=== PATIENT | male | born 2005 | race Caucasian/White ===

== ENCOUNTER 2024-10-14 22:12 | Emergency (ER) | payer BC, SELFPAY ==
--- NOTE | 2024-10-14 | ECG_ITS ---
Test Reason : NEAR SYNCOPE Blood Pressure : */* mmHG Vent. Rate : 103 BPM Atrial Rate : 103 BPM P-R Int : 126 ms QRS Dur : 92 ms QT Int : 314 ms P-R-T Axes : 83 72 53 degrees QTcB Int : 411 ms Sinus tachycardia Otherwise normal ECG No previous ECGs available Referred By: Generic ED Physician Electronically Signed By: RICCO RAMIREZ
[2024-10-14 22:18] VITALS: BP 130/97; PULSE 111; RESP 20; TEMP 36.8; O2SAT 96; BMI 25.7
[2024-10-14 22:45] LABS: MANUAL DIFF FLAG NO
[2024-10-14 22:46] LABS: Basophils Percent Auto 0.2 % (0-2); Eosinophils Percent Auto 0.1 % (0-4); Hematocrit 45.4 % (42.0-52.0); Hemoglobin 16.5 g/dl (14.0-18.0); Imm Gran Abs Auto 0.08 X10*3/uL (0.00-0.03); Imm Gran Pct Auto 0.6 % (0.0-0.4); Lymphocytes Absolute Auto 1.2 X10*3/uL (1.2-4.9); Mean Corpuscular HGB Conc 36.3 g/dl (31.0-36.0); Mean Corpuscular Hemoglobin 30.4 pg (27.0-33.0); Mean Corpuscular Volume 83.8 fL (80.0-98.0); Mean Platelet Volume 8.5 fL (9.4-12.4); Monocytes Absolute Auto 1.1 X10*3/uL (0.1-1.2); Monocytes Percent Auto 8.1 % (2-11); Neutrophils Absolute Auto 11.3 x10*3/uL (2.0-8.3); Platelet Count 300 X10*3/uL (160-400); Red Blood Count 5.42 X10*6/uL (4.60-5.80); Red Cell Distribution Width 12.3 % (11.0-16.0); White Blood Count 13.8 X10*3/uL (4.8-10.8)
[2024-10-14 23:03] LABS: Alanine Aminotransferase 37 U/L (0-40); Albumin Level 5.6 g/dL (3.5-5.0); Alkaline Phosphatase 103 U/L (39-117); Anion Gap 18 (12-20); Aspartate Amino Transferase 51 U/L (5-37); Bilirubin Total 0.7 mg/dL (0.0-1.0); Blood Urea Nitrogen 29 mg/dL (9-16); Calcium 10.9 mg/dL (8.4-10.2); Carbon Dioxide 22 mmol/L (22-29); Chloride 101 mmol/L (96-108); Creatinine Clr Calc Pharmacy 89.5; Estimated Glomerular Filt Rate 56; Glucose Random 118 mg/dL (60-115); Magnesium 2.3 mg/dL (1.6-2.6); Potassium 4.7 mmol/L (3.3-5.1); Sodium 136 mmol/L (135-145); Total Protein 8.5 g/dL (6.5-8.0)
[2024-10-14] MEDS: Lactated Ringers 1,000 ML 999 ML IV (23:12)
[2024-10-15] MEDS: 0.9 % Sodium Chloride 1,000 ML 999 ML IVCONT (01:22)
--- NOTE | 2024-10-15 02:12 | ED_ITS ---
HPI - General Adult General Chief complaint: General Medical Stated complaint: heat exhaustion / needs IV Time Seen by Provider: 10/15/24 01:08 Source: patient Mode of arrival: ambulatory Limitations: no limitations History of Present Illness ED Provider: Dr. Jerrica Dubose HPI narrative: patient comes to the emergency room complaining of feeling tired, bit lightheaded. Patient states that earlier today he was playing baseball around 14:00 in the afternoon on an almost 100 degrees F day. Patient states that in the past he has had similar episodes secondary to dehydration. Patient denies passing out. Denies chest pain or shortness of Breath. No abdominal pain. Patient complaining of full body cramps Related Data Allergies Allergy/AdvReac Type Severity Reaction Status Date / Time No Known Allergies Allergy Verified 10/14/24 22:23 Review of Systems 2 Review of Systems: Constitutional : No Weight loss, No Fever, No Chills, No Night Sweats, No Fatigue, No Malaise ENT/Mouth : No Hearing loss, No Ear Pain, No Nasal Congestion, No Sinus Pain, No Hoarseness, No sore throat, No Rhinorrhea, No Swallowing Difficulty Eyes: No Eye Pain, No Swelling, No Redness, No Foreign Body, No Discharge, No Vision Changes Cardiovascular : No Chest Pain, No SOB, No Dyspnea on Exertion, No Orthopnea, No Edema, No Palpitations Respiratory : No Cough, No Sputum, No Wheezing, No Smoke Exposure, No Dyspnea Gastrointestinal : No Nausea, No Vomiting, No Diarrhea, No Constipation, No abdominal Pain, No Hematochezia, No Melena Genitourinary : no irregular bleeding, No Dysuria, No Urinary Frequency, No Hematuria, No Urinary Incontinence, No Urgency, No Flank Pain, No Urinary Flow Changes, No Hesitancy Musculoskeletal : Complaining of body cramps No joint pain, No Myalgias, No Joint Swelling Skin : No Skin Lesions, No rash Neuro : No Weakness, No Numbness, No Paresthesias, No Loss of Consciousness, no headache, complaining of slight dizziness Psych : No Anxiety/Panic, No Depression, No SI/HI/AH/VH, No Social Issues, Heme/Lymph: No Bruising, No Bleeding,No Lymphadenopathy Endocrine : No Polyuria, No Polydipsia, No Temperature Intolerance PMFSH Social History Social History Advance Directives: No Advance Directives Information Provided: Yes Physical Exam ED Vital Signs: Vital Signs - 24 hr 10/14/24 22:18 10/15/24 03:07 Temperature 98.2 F 98.2 F Pulse Rate 111 H 80 Respiratory Rate 20 16 Blood Pressure 130/97 H 131/79 Pulse Oximetry 96 100 Oxygen Delivery Method Room Air Room Air BMI result Body Mass Index 25.7 Const Other: Appearance: Alert. Oriented X3. No acute distress. Eyes: Pupils equal, round and reactive to light. ENT: Pharynx normal. Neck: Normal inspection. Neck supple. No lymph nodes noted. No crepitus CVS: Normal heart rate and rhythm. Pulses normal. Normal S1 and S2 Respiratory: No respiratory distress. Breath sounds normal. No Wheezing. No rales Abdomen: Soft and nontender. No rigidity. No distention. Skin: Skin warm and dry. Normal skin color. Normal skin turgor. slight sunburn in the face Extremities: No lower extremity edema. No Lacerations. No Rash Neuro: Oriented X 3. No motor deficit. No sensory deficit. Moving all extremities. No slurred speech. CN 2 through 12 grossly intact Psych: calm, cooperative, normal affect Course Course Course Narrative: patient is likely dehydrated. All of patient's labs Pending. Overall, physical exam, patient is well-appearing Medications Administered Discontinued Medications Generic Name Dose Route Start Last Admin Trade Name Trungq PRN Reason Stop Dose Admin Lactated Ringer's 1,000 mls @ 999 mls/hr 10/14/24 23:00 10/15/24 01:13 Lr IV 10/15/24 00:00 Infused .Q1H1M VALENTIN Infusion Sodium Chloride 1,000 mls @ 999 mls/hr 10/15/24 01:14 10/15/24 03:38 Ns IVCONT 10/15/24 02:14 Infused .Q1H1M ONE Infusion Medical Decision Making Medical Decision Making [facility] Narrative: my interpretation of labs, patient's white blood cell count is 13.8, likely reactive leukocytosis. Chemistry shows a creatinine of 1.58 Along with a CPK of 2157. Patient is receiving IV fluids. Plan is to reassess labs in the patient again after 2 L of normal saline patient's creatinine improved to 1.5, back to normal, also patient has CPK starting to come down. Overall patient feeling better. Differential Diagnosis Differential Diagnoses: The differential diagnosis associated with the presentation includes ( Dehydration, heat exhaustion) Lab Data MDM Lab Attestation statement: I reviewed the patient's lab results. 10/14/24 22:40 10/15/24 03:13 Labs: Lab Results 10/14/24 10/15/24 Range/Units 22:40 03:13 WBC 13.8 H (4.8-10.8) X10*3/uL RBC 5.42 (4.60-5.80) X10*6/uL Hgb 16.5 (14.0-18.0) g/dl Hct 45.4 (42.0-52.0) % MCV 83.8 (80.0-98.0) fL MCH 30.4 (27.0-33.0) pg MCHC 36.3 H (31.0-36.0) g/dl RDW 12.3 (11.0-16.0) % Plt Count 300 (160-400) X10*3/uL MPV 8.5 L (9.4-12.4) fL Immature Gran % (Auto) 0.6 H (0.0-0.4) % Neut % (Auto) 82.0 H (45-73) % Lymph % (Auto) 9.0 L (20-40) % Guthrie % (Auto) 8.1 (2-11) % Eos % (Auto) 0.1 (0-4) % Baso % (Auto) 0.2 (0-2) % Lymph # (Auto) 1.2 (1.2-4.9) X10*3/uL Guthrie # (Auto) 1.1 (0.1-1.2) X10*3/uL Eos # (Auto) 0.0 (0.0-0.4) X10*3/uL Baso # (Auto) 0.0 (0.0-0.2) X10*3/uL Abs Immat Gran (auto) 0.08 H (0.00-0.03) X10*3/uL Absolute Neuts (auto) 11.3 H (2.0-8.3) x10*3/uL Absolute Nucleated RBC 0.000 (0.0-0.012) X10*3/uL Nucleated RBC % (auto) 0.0 (0.0-0.2) /100WBC Sodium 136 138 (135-145) mmol/L Potassium 4.7 4.6 (3.3-5.1) mmol/L Chloride 101 105 (96-108) mmol/L Carbon Dioxide 22 24 (22-29) mmol/L Anion Gap 18 14 (12-20) BUN 29 H 22 H (9-16) mg/dL Creatinine 1.56 H 1.05 (0.5-1.4) mg/dL Estim Creat Clear Calc 89.5 133.0 Estimated GFR 56 > 60 Random Glucose 118 H 111 (60-115) mg/dL Calcium 10.9 H 9.7 D (8.4-10.2) mg/dL Magnesium 2.3 (1.6-2.6) mg/dL Total Bilirubin 0.7 (0.0-1.0) mg/dL AST 51 H (5-37) U/L ALT 37 (0-40) U/L Alkaline Phosphatase 103 (39-117) U/L Total Creatine Kinase 2157 H 1817 H (38-174) U/L Total Protein 8.5 H (6.5-8.0) g/dL Albumin 5.6 H (3.5-5.0) g/dL Critical Care Time Critical Care Time Critical Care Time: Yes Total Critical Care Time: 45 Attestation: I have personally provided critical care time. Time includes review of lab data, radiology results, discussion with consultants, and monitoring for potential decompensation. Intervention performed as documented. Discharge Plan Discharge Clinical Impression: Heat exhaustion, Dehydration Patient Disposition: Home, Self-Care Instructions: Dehydration (ED), Heat Exhaustion (ED) Additional Instructions: Make sure that you stay well hydrated, drink plenty of fluids with electrolytes. Please follow-up with your primary care physician tomorrow. If you have any worsening or new symptoms, please return to the emergency room or call 911 Stand Alone Forms: Work/School Release Print Language: Filipino
[2024-10-15 03:07] VITALS: BP 131/79; PULSE 80; RESP 16; TEMP 36.8; O2SAT 100
[2024-10-15 03:36] LABS: Anion Gap 14 (12-20); Blood Urea Nitrogen 22 mg/dL (9-16); Calcium 9.7 mg/dL (8.4-10.2); Carbon Dioxide 24 mmol/L (22-29); Chloride 105 mmol/L (96-108); Estimated Glomerular Filt Rate > 60; Glucose Random 111 mg/dL (60-115); Potassium 4.6 mmol/L (3.3-5.1); Sodium 138 mmol/L (135-145)
[2024-10-15 04:24] VITALS: BP 133/69; PULSE 75; RESP 16; TEMP 36.6; O2SAT 99
== END 2024-10-15 04:27 | disposition home or self-care (01) ==
PROVIDERS: Emergency Medicine; Emergency Provider Emergency Medicine
DX: E86.0 Dehydration (principal); R25.2 Cramp and spasm; R42 Dizziness and giddiness; R00.0 Tachycardia, unspecified; T67.5XXA Heat exhaustion, unspecified, initial encounter; X58.XXXA Exposure to other specified factors, initial encounter; Y93.9 Activity, unspecified; Y92.9 Unspecified place or not applicable; Y99.8 Other external cause status
CPT/HCPCS: 36415; 80048; 80053; 82550; 83735; 85025; 93005; 96360; 96361; 99285; J7120

== ENCOUNTER → 2024-10-14 22:30 | Outpatient (BNV) | payer BC, SELFPAY | PROVIDERS: Emergency Provider Emergency Medicine; Visit Provider Internal Medicine | DX: R00.0 Tachycardia, unspecified (principal) | CPT/HCPCS: 93010 ==